=== PATIENT | female | born 1980 | race Caucasian/White ===

== ENCOUNTER 2016-12-23 18:36 | Emergency (ER) | payer OTHER ==
[~2016-12-23] VITALS: Ht 172.7 cm; Wt 158.3 kg
[~2016-12-23 18:36] MED LIST: CITALOPRAM HBR10 MG PO; LABETALOL HCL100 MG PO; LORTAB 5-325 M1 EACH PO; MOTRIN600 MG PO; NEURONTIN600 MG PO; NYAMYC60 GM TP; PRAVACHOL20 MG PO
[2016-12-23 19:18] LABS: HEMATOCRIT 38.1 % (36.0-46.0); MCH 27.1 PG (29.0-34.0); MCHC 35.2 G/DL (30.0-36.0); MCV 77.1 FL (83-99); PLATELET COUNT 202 K/uL (156-360); RBC DIS.WIDTH-CV 13.1 % (11.8-14.6); RBC DIS.WIDTH-SD 35.6 % (39-53); RED BLOOD COUNT 4.94 M/uL (3.80-5.20); WHITE BLOOD COUNT 9.3 K/uL (4.1-10.2)
[2016-12-23 19:29] LABS: CHLORIDE 105 mEq/L (99-109); POTASSIUM 3.7 mEq/L (3.7-5.4); SODIUM 142 mEq/L (136-147)
[2016-12-23 19:31] LABS: GLUCOSE 100 mg/dL (70-99)
[2016-12-23 19:32] LABS: ANION GAP 9 MEQ/L (2-14)
[2016-12-23 19:33] LABS: D-DIMER ELISA 0.18 mg/L FEU (< 0.57)
[2016-12-23 19:35] LABS: GFR ESTIMATE (CALCULATED) > 59 mL/min/
[2016-12-23 19:36] LABS: UREA NITROGEN (BUN) 12 mg/dL (9-23)
[2016-12-23 19:39] LABS: TROP-I INTERPRETATION NEGATIVE; TROPONIN-I < 0.01 ng/mL (0.0-0.30)
[2016-12-23] MEDS ORDERED: MOTRIN600 MG PO (23:27)
[2016-12-24] MEDS ORDERED: LOSARTAN POTAS100 MG PO (00:09)
[2016-12-24] MEDS ORDERED: TOPIRAMATE25 MG PO (00:09)
[2016-12-24] MEDS ORDERED: MICROZIDE12.5 M1 PO (00:10)
[2016-12-24] MEDS ORDERED: AZELASTINE137 MCG/0. BOTH NARES (00:10)
[2016-12-24] MEDS ORDERED: CETIRIZINE HCL10 M2 PO (00:10)
[2016-12-24] MEDS ORDERED: HYDROXYZINE PA100 MG PO (00:12)
[2016-12-24] MEDS ORDERED: BRINTELLIX20 MG PO (00:12)
[2016-12-24] MEDS ORDERED: LAMOTRIGINE200 MG PO (00:13)
[2016-12-24] MEDS ORDERED: DESYREL100 MG PO (00:13)
[2016-12-24 00:16] VITALS: BP 119/63
== END 2016-12-24 00:17 | disposition home or self-care (01) ==
LOC: EME 18:36
DX: R59.0 Localized enlarged lymph nodes (principal); E78.5 Hyperlipidemia, unspecified; I10 Essential (primary) hypertension
CPT/HCPCS: 71020; 76882; 80048; 84484; 85027; 85379; 93005; 99281; 99284

== ENCOUNTER 2017-02-27 11:27 | Emergency (ER) | payer OTHER ==
[~2017-02-27] VITALS: Ht 172.7 cm; Wt 157.2 kg
[~2017-02-27 11:27] MED LIST changes: +AZELASTINE137 MCG/0. BOTH NARES; +BRINTELLIX20 MG PO; +CETIRIZINE HCL10 M2 PO; +DESYREL100 MG PO; +HYDROXYZINE PA100 MG PO; +LAMOTRIGINE200 MG PO; +LOSARTAN POTAS100 MG PO; +MICROZIDE12.5 M1 PO; +TOPIRAMATE25 MG PO
[2017-02-27 11:48] VITALS: BP 126/100
== END 2017-02-27 12:36 | disposition home or self-care (01) ==
LOC: EME 11:27
DX: L76.32 Postprocedural hematoma of skin and subcutaneous tissue following other procedure (principal); Y84.8 Other medical procedures as the cause of abnormal reaction of the patient, or of later complication, without mention of misadventure at the time of the procedure; E66.01 Morbid (severe) obesity due to excess calories
CPT/HCPCS: 99281; 99284

== ENCOUNTER 2017-06-19 09:38 | Emergency (ER) | payer OTHER ==
[~2017-06-19] VITALS: Ht 172.7 cm; Wt 169.0 kg
[2017-06-19] MEDS ORDERED: MOBIC7.5 MG PO (12:46)
[2017-06-19 13:07] VITALS: BP 156/96
== END 2017-06-19 13:08 | disposition home or self-care (01) ==
LOC: EME 09:38
DX: M71.22 Synovial cyst of popliteal space [Baker], left knee (principal); S80.02XA Contusion of left knee, initial encounter; W19.XXXA Unspecified fall, initial encounter
CPT/HCPCS: 73564; 93971; 99281; 99283

== ENCOUNTER 2017-10-12 12:25 | Emergency (ER) | payer OTHER ==
[~2017-10-12] VITALS: Ht 170.2 cm; Wt 169.9 kg
[~2017-10-12 12:25] MED LIST changes: +MOBIC7.5 MG PO
[2017-10-12 12:53] LABS: MCH 28.2 PG (29.0-34.0); MCHC 34.4 G/DL (30.0-36.0); MCV 81.9 FL (83-99); MEAN PLAT.VOLUME 9.3 uM^3 (9.5-12.4); PLATELET COUNT 188 K/uL (156-360); RBC DIS.WIDTH-CV 12.4 % (11.8-14.6); RBC DIS.WIDTH-SD 36.8 % (39-53); RED BLOOD COUNT 4.76 M/uL (3.80-5.20); WHITE BLOOD COUNT 9.2 K/uL (4.1-10.2)
[2017-10-12 13:04] LABS: CHLORIDE 106 mEq/L (99-109); POTASSIUM 3.6 mEq/L (3.7-5.4); SODIUM 142 mEq/L (136-147)
[2017-10-12 13:06] LABS: GLUCOSE 116 mg/dL (70-99)
[2017-10-12 13:07] LABS: ANION GAP 9 MEQ/L (2-14)
[2017-10-12 13:10] LABS: GFR ESTIMATE (CALCULATED) > 59 mL/min/; UREA NITROGEN (BUN) 10 mg/dL (9-23)
[2017-10-12 13:22] LABS: TROP-I INTERPRETATION NEGATIVE; TROPONIN-I < 0.01 ng/mL (0.0-0.30)
[2017-10-12] MEDS ORDERED: MOTRIN600 MG PO (14:06)
[2017-10-12 14:16] VITALS: BP 163/103
== END 2017-10-12 14:18 | disposition home or self-care (01) ==
LOC: EME 12:25
DX: R07.89 Other chest pain (principal); I10 Essential (primary) hypertension; E78.5 Hyperlipidemia, unspecified; F17.200 Nicotine dependence, unspecified, uncomplicated; E66.01 Morbid (severe) obesity due to excess calories; Z68.43 Body mass index [BMI] 50.0-59.9, adult; F32.9 Major depressive disorder, single episode, unspecified; F41.9 Anxiety disorder, unspecified
CPT/HCPCS: 71020; 80048; 84484; 85027; 93005; 99281; 99284; J1885; J2270; J2405

== ENCOUNTER 2018-05-29 22:13 | Emergency (ER) | payer OTHER ==
[~2018-05-29] VITALS: Ht 172.7 cm; Wt 178.6 kg
[2018-05-29 22:43] LABS: HEMATOCRIT 36.6 % (36.0-46.0); HEMOGLOBIN 12.8 G/DL (11.9-15.5); MCH 27.9 PG (29.0-34.0); MCV 79.7 FL (83-99); PLATELET COUNT 210 K/uL (156-360); RBC DIS.WIDTH-CV 13.6 % (11.8-14.6); RBC DIS.WIDTH-SD 38.8 % (39-53); RED BLOOD COUNT 4.59 M/uL (3.80-5.20)
[2018-05-29 22:54] LABS: CHLORIDE 102 mEq/L (99-109); POTASSIUM 3.4 mEq/L (3.7-5.4); SODIUM 142 mEq/L (136-147)
[2018-05-29 22:56] LABS: GLUCOSE 128 mg/dL (70-99)
[2018-05-29 23:00] LABS: GFR ESTIMATE (CALCULATED) > 59 mL/min/
[2018-05-29 23:01] LABS: UREA NITROGEN (BUN) 14 mg/dL (9-23)
[2018-05-30] MEDS ORDERED: FIORICET 50-301 EAC1 PO (00:55)
[2018-05-30 00:59] VITALS: BP 162/89
== END 2018-05-30 00:59 | disposition home or self-care (01) ==
LOC: EME 22:13
PROVIDERS: Nurse Practitioner Family
DX: R51 Headache (principal); I10 Essential (primary) hypertension; E78.5 Hyperlipidemia, unspecified; F41.9 Anxiety disorder, unspecified; F32.9 Major depressive disorder, single episode, unspecified; F31.9 Bipolar disorder, unspecified; F17.200 Nicotine dependence, unspecified, uncomplicated; Z86.69 Personal history of other diseases of the nervous system and sense organs; Z98.890 Other specified postprocedural states
CPT/HCPCS: 80048; 85027; 99281; 99284; J1100; J1200; J1885; J2765